=== PATIENT | male | born 1970 | race Caucasian/White ===

== ENCOUNTER 2016-11-17 07:21 | Emergency (ER) | payer MEDICAID ==
[~2016-11-17] VITALS: Ht 165.1 cm; Wt 82.0 kg
[2016-11-17] MEDS ORDERED: SODIUM CHLORIDE 0.9% 1,000 ML IV ONE (08:54)
[2016-11-17] MEDS ORDERED: FAMOTIDINE 20MG/2ML VIAL IV STA (08:54)
[2016-11-17 09:14] LABS: BASOPHILS % 0.5 % (0.0-2.0); EOSINOPHILS % 0.7 % (0.0-5.0); HEMOGLOBIN. 14.5 g/dL (14.0-18.0); LYMPHOCYTES % 25.7 % (20.0-50.0); MEAN CORPUSCULAR HEMOGLOBIN 29.4 pg (28.0-32.0); MEAN CORPUSCULAR VOLUME 84.9 fL (80.0-94.0); MEAN PLATELET VOLUME 10.1 fl (7.4-10.4); MONOCYTES % 8.4 % (2.0-8.0); NEUTROPHILS % 64.7 % (40.0-76.0); PLATELET 163 x1000/uL (130-400); RED BLOOD CELL COUNT 4.95 mill/uL (4.7-6.1); RED CELL DISTRIBUTION WIDTH 14.2 % (11.6-14.6)
[2016-11-17 09:21] LABS: INR 1.1
[2016-11-17 09:30] LABS: CARBON DIOXIDE 28 mEq/L (21-32); CHLORIDE 106 mEq/L (98-107); CREATINE KINASE 160 IU/L (39-308); CREATINE KINASE MB FRACTION 1.1 ng/mL (0.5-3.6); TROPONIN I < 0.02 ng/mL (0.00-0.04)
[2016-11-17 12:03] LABS: CLARITY URINE CLEAR (CLEAR); COLOR URINE YELLOW (YELLOW); GLUCOSE URINE NEGATIVE (NEGATIVE); KETONES URINE NEGATIVE (NEGATIVE); LEUKOCYTE ESTERASE URINE NEGATIVE (NEGATIVE); NITRITE URINE NEGATIVE (NEGATIVE); OCCULT BLOOD URINE NEGATIVE (NEGATIVE); PH URINE 7.5 (4.5-8.0); PROTEIN URINE NEGATIVE (NEGATIVE); SPECIFIC GRAVITY URINE 1.009 (1.005-1.030); UROBILINOGEN URINE 0.2 E.U./dL (0.2-1.0)
[2016-11-17 12:30] LABS: *AMPHETAMINES SCREEN URINE NEGATIVE (NEGATIVE); *BARBITURATES SCREEN URINE NEGATIVE (NEGATIVE); *BENZODIAZEPINES SCREEN URINE NEGATIVE (NEGATIVE); *COCAINE SCREEN URINE NEGATIVE (NEGATIVE); CANNABINOID URINE SCREEN NEGATIVE (NEGATIVE); METHADONE URINE SCREEN NEGATIVE (NEGATIVE); OPIATES URINE SCREEN NEGATIVE (NEGATIVE); PHENCYCLIDINE URINE SCREEN NEGATIVE (NEGATIVE)
[2016-11-17 13:05] VITALS: BP 132/79
== END 2016-11-17 13:49 | disposition home or self-care (01) ==
LOC: ER 07:21
DX: R10.11 Right upper quadrant pain (principal); R42 Dizziness and giddiness; R53.1 Weakness; R06.02 Shortness of breath; R11.0 Nausea; R03.0 Elevated blood-pressure reading, without diagnosis of hypertension; K76.0 Fatty (change of) liver, not elsewhere classified; R16.0 Hepatomegaly, not elsewhere classified
CPT/HCPCS: 36415; 74022; 76705; 80053; 80305; 81003; 82550; 82553; 83690; 83735; 84484; 85025; 85610; 85730; 93005; 96361; 96374; 99285; J3490; J7030

== ENCOUNTER 2016-12-28 15:09 | Emergency (ER) | payer MEDICAID ==
[~2016-12-28] VITALS: Ht 167.6 cm; Wt 82.0 kg
[2016-12-28] MEDS ORDERED: FAMOTIDINE 20MG/2ML VIAL IV STA (16:31)
[2016-12-28] MEDS ORDERED: MORPHINE SULFATE 4 MG/ML CPJ (NOT FOR IM USE) IV STA (16:31)
[2016-12-28] MEDS ORDERED: ONDANSETRON HCL 4MG/2ML VIAL IV STA (16:31)
[2016-12-28] MEDS ORDERED: KETOROLAC 30MG/ML VIAL IV ONE (16:45)
[2016-12-28 17:16] LABS: BASOPHILS % 0.5 % (0.0-2.0); EOSINOPHILS % 0.7 % (0.0-5.0); HEMATOCRIT. 45.2 % (42.0-52.0); HEMOGLOBIN. 15.5 g/dL (14.0-18.0); LYMPHOCYTES % 26.5 % (20.0-50.0); MEAN CORPUSCULAR HEMOGLOBIN 29.3 pg (28.0-32.0); MEAN CORPUSCULAR VOLUME 85.5 fL (80.0-94.0); MEAN PLATELET VOLUME 10.7 fl (7.4-10.4); MONOCYTES % 6.6 % (2.0-8.0); NEUTROPHILS % 65.7 % (40.0-76.0); PLATELET 197 x1000/uL (130-400); RED BLOOD CELL COUNT 5.29 mill/uL (4.7-6.1); RED CELL DISTRIBUTION WIDTH 13.3 % (11.6-14.6)
[2016-12-28 17:19] LABS: CARBON DIOXIDE 23 mEq/L (21-32); CHLORIDE 108 mEq/L (98-107)
[2016-12-28 20:35] VITALS: BP 142/79
== END 2016-12-28 20:41 | disposition home or self-care (01) ==
LOC: ER 15:09
DX: K29.00 Acute gastritis without bleeding (principal)
CPT/HCPCS: 36415; 76705; 80053; 83690; 85025; 96374; 96375; 99285; J1885; J2270; J2405; J3490; J7030; Z7610

== ENCOUNTER 2017-01-23 18:53 | Emergency (ER) | payer MEDICAID ==
[~2017-01-23] VITALS: Ht 165.1 cm; Wt 82.0 kg
[2017-01-23] MEDS ORDERED: SODIUM CHLORIDE 0.9% 1,000 ML IV ONE (20:07)
[2017-01-23] MEDS ORDERED: ONDANSETRON HCL 4MG/2ML VIAL IV STA (20:07)
[2017-01-23] MEDS ORDERED: KETOROLAC 30MG/ML VIAL IV STA (20:07)
[2017-01-23 20:23] LABS: CLARITY URINE CLEAR (CLEAR); COLOR URINE YELLOW (YELLOW); GLUCOSE URINE NEGATIVE (NEGATIVE); KETONES URINE NEGATIVE (NEGATIVE); LEUKOCYTE ESTERASE URINE NEGATIVE (NEGATIVE); NITRITE URINE NEGATIVE (NEGATIVE); OCCULT BLOOD URINE NEGATIVE (NEGATIVE); PH URINE 7.5 (4.5-8.0); PROTEIN URINE NEGATIVE (NEGATIVE); SPECIFIC GRAVITY URINE 1.009 (1.005-1.030); UROBILINOGEN URINE 0.2 E.U./dL (0.2-1.0)
[2017-01-23 20:40] LABS: BASOPHILS % 0.5 % (0.0-2.0); EOSINOPHILS % 0.9 % (0.0-5.0); HEMATOCRIT. 42.8 % (42.0-52.0); LYMPHOCYTES % 28.9 % (20.0-50.0); MEAN CORPUSCULAR HEMOGLOBIN 30.4 pg (28.0-32.0); MEAN CORPUSCULAR VOLUME 86.7 fL (80.0-94.0); MEAN PLATELET VOLUME 10.1 fl (7.4-10.4); MONOCYTES % 7.1 % (2.0-8.0); NEUTROPHILS % 62.6 % (40.0-76.0); PLATELET 177 x1000/uL (130-400); RED BLOOD CELL COUNT 4.94 mill/uL (4.7-6.1); RED CELL DISTRIBUTION WIDTH 13.4 % (11.6-14.6)
[2017-01-23 20:44] LABS: PROTHROMBIN TIME 10.7 sec (9.4-11.6)
[2017-01-23 20:48] LABS: CHLORIDE 107 mEq/L (98-107)
[2017-01-23 20:52] LABS: CARBON DIOXIDE 26 mEq/L (21-32)
[2017-01-23 23:42] VITALS: BP 113/68
== END 2017-01-23 23:42 | disposition home or self-care (01) ==
LOC: ER 18:53
DX: R10.11 Right upper quadrant pain (principal); R11.2 Nausea with vomiting, unspecified; R74.0 Nonspecific elevation of levels of transaminase and lactic acid dehydrogenase [LDH]; F41.9 Anxiety disorder, unspecified; K21.9 Gastro-esophageal reflux disease without esophagitis
CPT/HCPCS: 36415; 76700; 80053; 81003; 83690; 85025; 85610; 96361; 96374; 96375; 99285; J1885; J2405; J7030; Z7610

== ENCOUNTER 2018-03-04 20:15 | Emergency (ER) | payer MEDICAID ==
[~2018-03-04] VITALS: Ht 185.4 cm; Wt 82.0 kg
[2018-03-04 20:27] VITALS: BP 140/92
== END 2018-03-04 23:54 | disposition left against medical advice (07) ==
LOC: ER 20:15
DX: Z53.21 Procedure and treatment not carried out due to patient leaving prior to being seen by health care provider (principal)

== ENCOUNTER 2021-08-18 09:51 | Emergency (ER) | payer MEDICAID ==
[~2021-08-18] VITALS: Ht 165.1 cm; Wt 77.0 kg
[2021-08-18 10:07] VITALS: BP 129/81
[2021-08-18] MEDS ORDERED: TETANUS, DIPHTHERIA, PERTUSSIS VAC/PF 0.5ML (>10YR OLD) IM ONE (12:15)
[2021-08-18] MEDS ORDERED: BACITRACIN ZINC OINT UDPKT TOP ONE (12:15)
[2021-08-18] MEDS ORDERED: LIDOCAINE HCL/PF 1% 10 MG/ML 5ML VIAL INFIL ONE (12:15)
[2021-08-18] MEDS ORDERED: AMOX-424 MT (13:45)
== END 2021-08-18 14:03 | disposition home or self-care (01) ==
LOC: ER 10:07
DX: S61.233A Puncture wound without foreign body of left middle finger without damage to nail, initial encounter (principal); S69.82XA Other specified injuries of left wrist, hand and finger(s), initial encounter; K21.9 Gastro-esophageal reflux disease without esophagitis; W34.010A Accidental discharge of airgun, initial encounter; Y93.89 Activity, other specified; Y92.9 Unspecified place or not applicable
CPT/HCPCS: 20520; 73140; 90471; 90715; 99284; J3490